=== PATIENT | male | born 1985 | race African-American/Black ===

== ENCOUNTER 2021-08-04 17:54 | Inpatient (IN) | payer OTHER ==
[2021-08-04 19:22] VITALS: BMI 22.6
[2021-08-04] MEDS ORDERED: MAGNESIUM HYDROX 2400MG/30ML ORAL SUSPENSION 30 ML CUP PO PRN (20:31)
[2021-08-04] MEDS ORDERED: MAGNESIUM CITRATE 300 ML BOTTLE PO PRN (20:31)
[2021-08-04] MEDS ORDERED: P-EPHED 60MG/TRIPROLIDI 2.5MG TABLET PO PRN (20:31)
[2021-08-04] MEDS ORDERED: LOPERAMIDE HCL 2 MG CAPSULE PO PRN (20:31)
[2021-08-04] MEDS ORDERED: guaiFENesin 200 MG/10 ML 10 ML UNIT-DOSE CUPS PO PRN (20:31)
[2021-08-04] MEDS ORDERED: ACETAMINOPHEN 325 MG TABLET (FP) PO PRN (20:31)
[2021-08-04] MEDS ORDERED: MAG HYDROX/AL HYDROX/SIMETH 30 ML UNIT-DOSE CUP PO PRN (20:31)
[2021-08-04] MEDS: MELATONIN 5 MG TABLETS PO SCH (23:15)
[2021-08-04] MEDS: THIAMINE HCL 100 MG TABLET (FP) PO SCH (23:15)
[2021-08-05] MEDS ORDERED: NICOTINE 7 MG/24 HOURS TOPICAL PATCH TD SCH (10:00)
[2021-08-05] MEDS: PRENATAL VITAMINS W/ FOLIC ACID TABLET (FP) PO SCH (10:27)
[2021-08-05] MEDS: NICOTINE 14 MG/24 HOURS TOPICAL PATCH TD SCH (10:27)
[2021-08-05 11:12] LABS: CALCIUM 8.9 mg/dL (8.5-10.1)
[2021-08-05 11:13] LABS: ALBUMIN 3.6 g/dl (3.4-5.0)
[2021-08-05 11:16] LABS: CREATININE 0.8 mg/dL (0.55-1.3)
[2021-08-05 11:18] LABS: BILIRUBIN,TOTAL 2.2 mg/dL (0.2-1); TOT PROT 6.8 g/dl (6.4-8.2)
[2021-08-05 11:27] LABS: HEMATOCRIT 21.5 % (35.4-49); HEMOGLOBIN 7.8 GM/dL (11.7-16.9); MCH 33.7 pg (25.7-33.7); MCHC 36.2 g/dl (32.0-35.9); MEAN CELL VOLUME 92.9 fl (80-96); MEAN PLT VOLUME 8.5 fl (7.5-11.1); PLATELET COUNT 235 10^3/uL (134-434); RBC 2.32 M/mm3 (4.00-5.60); RDW 24.7 % (11.9-15.9); WHITE BLOOD COUNT 9.6 K/mm3 (4.0-10.0)
[2021-08-05 11:38] LABS: PH,URINE 6.5 (5.0-8.0); URINE APPEARANCE CLEAR; URINE BILIRUBIN NEGATIVE (NEGATIVE); URINE COLOR YELLOW; URINE GLUCOSE (UA) NEGATIVE (NEGATIVE); URINE KETONE NEGATIVE (NEGATIVE); URINE LEUK ESTERASE NEGATIVE (NEGATIVE); URINE NITRITE NEGATIVE (NEGATIVE); URINE PROTEIN NEGATIVE (NEGATIVE)
[2021-08-05 12:24] LABS: SICKLE CELL SCREEN POSITIVE (NEGATIVE)
[2021-08-05 13:13] LABS: SYPHILIS W/ RPR CONF NON-REACTIVE (NONREACTIVE)
[2021-08-05 13:27] LABS: HIV INTERPRETATION NEGATIVE (NEGATIVE)
[2021-08-05] MEDS: MELATONIN 5 MG TABLETS PO SCH (21:35)
[2021-08-05] MEDS: THIAMINE HCL 100 MG TABLET (FP) PO SCH (21:35)
[2021-08-06] MEDS: PRENATAL VITAMINS W/ FOLIC ACID TABLET (FP) PO SCH (10:12)
[2021-08-06] MEDS: NICOTINE 14 MG/24 HOURS TOPICAL PATCH TD SCH (10:12)
[2021-08-06] MEDS: hydrOXYzine PAMOATE 25 MG CAPSULE (FP) PO PRN (10:12)
[2021-08-06] MEDS: MELATONIN 5 MG TABLETS PO SCH (21:31)
[2021-08-06] MEDS: THIAMINE HCL 100 MG TABLET (FP) PO SCH (21:31)
[2021-08-07] MEDS: PRENATAL VITAMINS W/ FOLIC ACID TABLET (FP) PO SCH (10:31)
[2021-08-07] MEDS: NICOTINE 14 MG/24 HOURS TOPICAL PATCH TD SCH (10:31)
[2021-08-07] MEDS: MELATONIN 5 MG TABLETS PO SCH (21:40)
[2021-08-07] MEDS: THIAMINE HCL 100 MG TABLET (FP) PO SCH (21:40)
[2021-08-08] MEDS: NICOTINE 14 MG/24 HOURS TOPICAL PATCH TD SCH (10:32)
[2021-08-08] MEDS: PRENATAL VITAMINS W/ FOLIC ACID TABLET (FP) PO SCH (10:36)
[2021-08-08] MEDS: IBUPROFEN 400 MG TABLET (FP) PO PRN (14:19)
[2021-08-08] MEDS: FERROUS SO4 325 MG TABLET (FP) PO SCH (18:32)
[2021-08-08] MEDS: MELATONIN 5 MG TABLETS PO SCH (21:59)
[2021-08-08] MEDS: THIAMINE HCL 100 MG TABLET (FP) PO SCH (21:59)
[2021-08-09] MEDS: FERROUS SO4 325 MG TABLET (FP) PO SCH ×2 (08:21→16:51)
[2021-08-09] MEDS: NICOTINE 14 MG/24 HOURS TOPICAL PATCH TD SCH (10:24)
[2021-08-09] MEDS: FOLIC ACID 1 MG TABLET (FP) PO SCH (10:24)
[2021-08-09] MEDS: THIAMINE HCL 100 MG TABLET (FP) PO SCH (22:45)
[2021-08-09] MEDS: MELATONIN 5 MG TABLETS PO SCH (22:45)
[2021-08-10] MEDS: FERROUS SO4 325 MG TABLET (FP) PO SCH ×2 (07:13→16:56)
[2021-08-10] MEDS: FOLIC ACID 1 MG TABLET (FP) PO SCH (09:39)
[2021-08-10] MEDS: NICOTINE 14 MG/24 HOURS TOPICAL PATCH TD SCH (09:40)
[2021-08-10] MEDS: THIAMINE HCL 100 MG TABLET (FP) PO SCH (21:39)
[2021-08-10] MEDS: MELATONIN 5 MG TABLETS PO SCH (21:39)
[2021-08-11] MEDS: FERROUS SO4 325 MG TABLET (FP) PO SCH ×2 (07:04→17:20)
[2021-08-11 10:17] LABS: BASO % 1.9 % (0-2.0); EOS % 6.7 % (0-4.5); HEMATOCRIT 20.9 % (35.4-49); HEMOGLOBIN 7.7 GM/dL (11.7-16.9); MCH 34.3 pg (25.7-33.7); MCHC 36.6 g/dl (32.0-35.9); MEAN CELL VOLUME 93.6 fl (80-96); MEAN PLT VOLUME 9.2 fl (7.5-11.1); MONO % 14.5 % (3.8-10.2); NEUT % 39.9 % (42.8-82.8); PLATELET COUNT 207 10^3/uL (134-434); RBC 2.24 M/mm3 (4.00-5.60); RDW 25.9 % (11.9-15.9); WHITE BLOOD COUNT 9.9 K/mm3 (4.0-10.0)
[2021-08-11] MEDS: FOLIC ACID 1 MG TABLET (FP) PO SCH (11:07)
[2021-08-11] MEDS: NICOTINE 14 MG/24 HOURS TOPICAL PATCH TD SCH (11:07)
[2021-08-11 14:16] LABS: ANISOCYTOSIS 1+; MACROCYTOSIS 1+; PLATELET ESTIMATE NORMAL; SICKELED CELLS 2+; TARGET CELLS 2+
[2021-08-11 14:58] LABS: Hgb F 2.4; Hgb S 68.2
[2021-08-11 14:59] LABS: HGB SOLUBILITY Positive
[2021-08-11] MEDS: THIAMINE HCL 100 MG TABLET (FP) PO SCH (21:37)
[2021-08-11] MEDS: MELATONIN 5 MG TABLETS PO SCH (21:37)
[2021-08-12] MEDS: FERROUS SO4 325 MG TABLET (FP) PO SCH ×2 (07:32→16:31)
[2021-08-12] MEDS: NICOTINE 14 MG/24 HOURS TOPICAL PATCH TD SCH (11:29)
[2021-08-12] MEDS: FOLIC ACID 1 MG TABLET (FP) PO SCH (11:29)
[2021-08-12] MEDS: NICOTINE 10 MG CARTRIDGE (INHALER) IH PRN ×2 (16:31→20:32)
[2021-08-12] MEDS: THIAMINE HCL 100 MG TABLET (FP) PO SCH (21:10)
[2021-08-12] MEDS: MELATONIN 5 MG TABLETS PO SCH (21:10)
[2021-08-13] MEDS: FERROUS SO4 325 MG TABLET (FP) PO SCH ×2 (07:23→16:31)
[2021-08-13] MEDS: FOLIC ACID 1 MG TABLET (FP) PO SCH (11:11)
[2021-08-13] MEDS: NICOTINE 14 MG/24 HOURS TOPICAL PATCH TD SCH (11:11)
[2021-08-13] MEDS: NICOTINE 10 MG CARTRIDGE (INHALER) IH PRN ×2 (13:58→21:24)
[2021-08-13] MEDS: MELATONIN 5 MG TABLETS PO SCH (21:24)
[2021-08-13] MEDS: THIAMINE HCL 100 MG TABLET (FP) PO SCH (21:24)
[2021-08-13] MEDS: IBUPROFEN 400 MG TABLET (FP) PO PRN (23:36)
[2021-08-14] MEDS: FERROUS SO4 325 MG TABLET (FP) PO SCH ×2 (07:47→17:03)
[2021-08-14] MEDS: NICOTINE 14 MG/24 HOURS TOPICAL PATCH TD SCH (11:25)
[2021-08-14] MEDS: FOLIC ACID 1 MG TABLET (FP) PO SCH (11:25)
[2021-08-14] MEDS: NICOTINE 10 MG CARTRIDGE (INHALER) IH PRN (19:11)
[2021-08-14] MEDS: THIAMINE HCL 100 MG TABLET (FP) PO SCH (21:10)
[2021-08-14] MEDS: MELATONIN 5 MG TABLETS PO SCH (21:10)
[2021-08-15] MEDS: FOLIC ACID 1 MG TABLET (FP) PO SCH (10:50)
[2021-08-15] MEDS: FERROUS SO4 325 MG TABLET (FP) PO SCH ×2 (10:50→17:20)
[2021-08-15] MEDS: NICOTINE 14 MG/24 HOURS TOPICAL PATCH TD SCH (10:51)
[2021-08-15 11:44] LABS: BASO % 0.9 % (0-2.0); HEMATOCRIT 21.3 % (35.4-49); HEMOGLOBIN 7.8 GM/dL (11.7-16.9); LYMPH % 38.7 % (8-40); MCH 34.4 pg (25.7-33.7); MCHC 36.4 g/dl (32.0-35.9); MEAN CELL VOLUME 94.3 fl (80-96); MEAN PLT VOLUME 9.3 fl (7.5-11.1); MONO % 13.4 % (3.8-10.2); PLATELET COUNT 201 10^3/uL (134-434); RBC 2.26 M/mm3 (4.00-5.60); RDW 25.2 % (11.9-15.9)
[2021-08-15 12:26] LABS: ANISOCYTOSIS 2+; MACROCYTOSIS 2+; PLATELET ESTIMATE NORMAL; SICKELED CELLS 2+
[2021-08-15] MEDS: NICOTINE 10 MG CARTRIDGE (INHALER) IH PRN ×2 (14:39→21:28)
[2021-08-15] MEDS: THIAMINE HCL 100 MG TABLET (FP) PO SCH (21:16)
[2021-08-15] MEDS: MELATONIN 5 MG TABLETS PO SCH (21:16)
[2021-08-16 07:15] VITALS: TEMP 98.6
[2021-08-16] MEDS: NICOTINE 14 MG/24 HOURS TOPICAL PATCH TD SCH (10:31)
[2021-08-16] MEDS: FOLIC ACID 1 MG TABLET (FP) PO SCH (10:31)
[2021-08-16] MEDS: FERROUS SO4 325 MG TABLET (FP) PO SCH ×2 (10:31→21:18)
[2021-08-16] MEDS: NICOTINE 10 MG CARTRIDGE (INHALER) IH PRN (15:32)
[2021-08-16] MEDS: THIAMINE HCL 100 MG TABLET (FP) PO SCH (21:18)
[2021-08-16] MEDS: MELATONIN 5 MG TABLETS PO SCH (21:18)
[2021-08-16] MEDS: hydrOXYzine PAMOATE 25 MG CAPSULE (FP) PO PRN (21:19)
[2021-08-16] MEDS: IBUPROFEN 400 MG TABLET (FP) PO PRN (21:19)
[2021-08-17] MEDS: FERROUS SO4 325 MG TABLET (FP) PO SCH ×2 (07:46→17:17)
[2021-08-17] MEDS: FOLIC ACID 1 MG TABLET (FP) PO SCH (10:43)
[2021-08-17] MEDS: NICOTINE 14 MG/24 HOURS TOPICAL PATCH TD SCH (10:43)
[2021-08-17] MEDS: NICOTINE 10 MG CARTRIDGE (INHALER) IH PRN (19:13)
[2021-08-17] MEDS: THIAMINE HCL 100 MG TABLET (FP) PO SCH (21:37)
[2021-08-17] MEDS: MELATONIN 5 MG TABLETS PO SCH (21:37)
[2021-08-18] MEDS: FERROUS SO4 325 MG TABLET (FP) PO SCH (07:08)
[2021-08-18 08:12] VITALS: BP 99/56; PULSE 63
[2021-08-18] MEDS: NICOTINE 14 MG/24 HOURS TOPICAL PATCH TD SCH (09:07)
[2021-08-18] MEDS: FOLIC ACID 1 MG TABLET (FP) PO SCH (09:07)
[2021-08-18] MEDS: NICOTINE 10 MG CARTRIDGE (INHALER) IH PRN (09:07)
[2021-08-21] MEDS ORDERED: MULTIVITAMINS (DAILY MVI) TABLET (FP) PO SCH (10:00)
== END 2021-08-18 10:15 | disposition home or self-care (01) | DRG 772 ==
LOC: YASAS 17:54 → Y3W 22:01
PROVIDERS: ADMIT Allergy & Immunology; ATTEND Allergy & Immunology
PROC: HZ42ZZZ Group Counseling for Substance Abuse Treatment, Cognitive-Behavioral (ICD-10-PCS; principal; 2021-08-04)
DX: F10.20 Alcohol dependence, uncomplicated (principal); F14.20 Cocaine dependence, uncomplicated; F17.210 Nicotine dependence, cigarettes, uncomplicated; F19.259 Other psychoactive substance dependence with psychoactive substance-induced psychotic disorder, unspecified; F19.24 Other psychoactive substance dependence with psychoactive substance-induced mood disorder; F20.0 Paranoid schizophrenia; D57.1 Sickle-cell disease without crisis; Z59.01 Sheltered homelessness; Z56.0 Unemployment, unspecified
CPT/HCPCS: 36415; 80053; 81003; 83021; 85025; 85027; 85660; 86780; 86803; 87389; 87811; 93005; 93010; C9803; U0003; U0005